=== PATIENT | female | born 1985 | race Caucasian/White ===

== ENCOUNTER 2019-01-23 08:58 | Emergency (ER) | payer SELFPAY ==
--- NOTE | 2019-01-23 09:05 | ED Physician Documentation ---
Rectal Pain - HISTORIAN Historian: patient - HPI Stated Complaint: rectal pain Chief Complaint: Rectal Pain Additional Information: Patient presents to ED with a 2 day history of rectal pain with radiation to left lower abdomen. Patient states the pain is worse with passing gas and bowel movements. She rates her pain 10/10 sharp, stabbing. She reports some pink/bright red on toilet paper after bowel movement. Patient reports history of colitis about 5 years ago. Onset: days ago (2) Timing: gradual onset Severity: moderate - Associated Symptoms Description of Stools: denies: constipation, diarrhea Abdominal Pain: LLQ Description of Rectal Bleed: bright red blood on paper Other Related Symptoms: denies: nausea, vomiting - ROS CONST: denies: no problems SKIN/LYMPH: denies: leg swelling CVS/RESP: denies: none GI/: rectal intercourse EYES/ENT: problems with vision MS: none NEURO/PSYCH: denies: headache - PAST HX Past History: other (colitis). denies: bleeding disorder Other History: other Surgeries/Procedures: none Allergies/Adverse Reactions: Allergies Allergy/AdvReac Type Severity Reaction Status Date / Time No Known Allergies Allergy Verified 01/23/19 09:11 Home Medications: Ambulatory Orders Medication Instructions Recorded Hydrocortisone 2.5% Rectal 28.35 gm RC QID #1 tube 01/23/19 [Proctosol-Hc 2.5% Rectal Cream] PARoxetine HCL [Paxil] 10 mg PO QD 01/23/19 Trazodone HCl 50 mg PO DAILY 01/23/19 - SOCIAL HX Smoking History: non-smoker Alcohol Use: none Drug Use: none - FAMILY HX Family History: none - VITAL SIGNS Vital Signs: Vital Signs Temp Pulse Resp BP Pulse Ox 96.3 F L 105 H 19 134/67 97 01/23/19 09:05 01/23/19 09:05 01/23/19 09:05 01/23/19 09:05 01/23/19 09:05 - REVIEWED ASSESSMENTS Nursing Assessment Reviewed: Yes Vitals Reviewed: Yes ED Results Lab/Radiology - Lab Results Lab Results: Lab Results 01/23/19 09:30 WBC 6.30 K/ul K/ul (4.00-12.00) RBC 4.34 M/ul M/ul (3.90-5.20) Hgb 12.7 g/dL g/dL (12.0-16.0) Hct 38.5 % % (34.5-46.5) MCV 89.0 fl fl (80.0-100.0) MCH 29.4 pg pg (28.0-34.0) MCHC 33.2 g/dL g/dL (30.0-36.0) RDW 15.8 % H % (11.3-14.3) Plt Count 229 K/mm3 K/mm3 (130-400) Neut % (Auto) 51.5 % % (39.0-79.0) Lymph % (Auto) 41.8 % % (16.0-50.0) [place] % (Auto) 4.4 % % (0.0-11.0) Eos % (Auto) 1.6 % % (0.0-6.8) Baso % (Auto) 0.7 % % (0.0-1.5) Neut # (Auto) 3.2 # k/uL # k/uL (1.4-7.7) Lymph # (Auto) 2.6 # k/uL # k/uL (0.6-4.0) [place] # (Auto) 0.3 # k/uL # k/uL (0.0-0.9) Eos # (Auto) 0.1 # k/uL # k/uL (0.0-0.6) Baso # (Auto) 0.0 # k/uL # k/uL (0.0-0.5) - Orders Orders: ED Orders Category Date Time Status CBC/PLATELET/DIFF Routine Lab 01/23/19 09:30 Completed CMP [CMP] Routine Lab 01/23/19 09:30 Received Rectal Pain Physical Exam - EXAM General Appearance: no acute distress, mild distress EENT: ASTRID Neck: nml inspection Respiratory: no resp distress CVS: reg. rate & rhythm Abdomen: soft, tenderness (LLQ palp causes rectal pain) Rectal: other (heme negative, extremely tenderness) Skin: color nml, no rash Extremities: non-tender, no edema Neuro/Psych: oriented x3, motor nml Discharge Clincal Impression: Hemorrhoids Qualifiers: Hemorrhoid type: unspecified Qualified Code(s): K64.9 - Unspecified hemorrhoids Prescriptions: Hydrocortisone 2.5% Rectal [Proctosol-Hc 2.5% Rectal Cream] 28.35 gm RC QID #1 tube Referrals: Primary Doctor,No [Primary Care Provider] - 2 Days Additional Instructions: 1. Apply Protosol as directed 2. Tylenol and/or ibuprofen as needed for pain. These may be taken together for better pain control 3. Follow up with PCP within 1 week 4. Return to ER for new or worsening symptoms. Condition: Stable Disposition: 01 HOME, SELF-CARE Decision to Admit: NO Date of Decison to Admit: 01/23/19 Decision Time: 10:13
[2019-01-23 09:11] VITALS: BP 134/67
[2019-01-23 09:59] LABS: MEAN CORPUSCULAR HEMOGLOBIN 29.4 pg (28.0-34.0)
[2019-01-23 10:00] LABS: MONOCYTES % 4.4 % (0.0-11.0)
[2019-01-23 10:01] LABS: BASOPHILS % 0.7 % (0.0-1.5); EOSINOPHILS % 1.6 % (0.0-6.8); NEUTROPHILS # 3.2 # k/uL (1.4-7.7)
[2019-01-23 10:15] LABS: eGFR (Non-African) > 60
== END 2019-01-23 10:20 | disposition home or self-care (01) ==
LOC: ED 08:58
DX: K64.9 Unspecified hemorrhoids (principal)
CPT/HCPCS: 36415; 80053; 85025; 99283

== ENCOUNTER 2019-01-24 21:14 | Emergency (ER) | payer SELFPAY ==
[2019-01-24 21:29] VITALS: BP 118/64
--- NOTE | 2019-01-24 21:35 | ED Physician Documentation ---
Rectal Pain - HISTORIAN Historian: patient - HPI Stated Complaint: rectal pain Chief Complaint: Rectal Pain (Hemorrhoid) Additional Information: Patient is a 33-year-old female who presents to the ER from the [facility] with c/o rectal pain. She was seen yesterday morning and diagnosed with a very small hemorrhoid and given a script for Proctosol but she has not picked it up. She states that she has been using preparation H. Behavior is inappropriate- she was calm lying in bed until I entered the room and she started moving all over the bed. Rectal exam was positive for a very very tiny hemorrhoid- Rectal vault was negative- no stool in vault- no polyp or abnormalities noted. Patient is starting to demonstrate signs of "drug seeking behavior". Tried to explain that condition did not warrant a narcotic pain medication- explained that it can worsen her condition. Patient unhappy with treatment. Tried to encourage her to continue using Preparation H and starting on a stool softener. Onset: days ago (seen in ER yesterday) Timing: still present Severity: mild (very small) - Associated Symptoms Last Bowel Movement: 01/24/19 Description of Stools: denies: dark stools, constipation Abdominal Pain: none Emesis Description: denies: blood, coffee grounds Description of Rectal Bleed: rectal pain (no bleed) Other Related Symptoms: denies: nausea, vomiting - ROS CONST: no problems SKIN/LYMPH: denies: leg swelling, rash CVS/RESP: none GI/: denies: rectal intercourse EYES/ENT: denies: problems with vision, sore throat MS: none NEURO/PSYCH: denies: headache, lost feeling - PAST HX Past History: hemorrhoids. denies: bleeding disorder, polyps Other History: other (depression/anxiety) Surgeries/Procedures: cholecystectomy, (x2) Immunizations: UTD Allergies/Adverse Reactions: Allergies Allergy/AdvReac Type Severity Reaction Status Date / Time No Known Allergies Allergy Verified 01/23/19 09:11 Home Medications: Ambulatory Orders Medication Instructions Recorded Hydrocortisone 2.5% Rectal 28.35 gm RC QID #1 tube 01/23/19 [Proctosol-Hc 2.5% Rectal Cream] PARoxetine HCL [Paxil] 10 mg PO QD 01/23/19 Trazodone HCl 50 mg PO DAILY 01/23/19 - SOCIAL HX Smoking History: greater than 1 pack/day Alcohol Use: none Drug Use: none - FAMILY HX Family History: none - VITAL SIGNS Vital Signs: Vital Signs Temp Pulse Resp BP Pulse Ox 98.7 F 89 19 118/64 99 01/24/19 21:22 01/24/19 21:22 01/24/19 21:22 01/24/19 21:22 01/24/19 21:22 Rectal Pain Physical Exam - EXAM General Appearance: alert, mild distress (behavior is inappropriate (calm until staff walk in room)) EENT: no signs of dehydration, ASTRID Neck: nml inspection Respiratory: breath sounds normal CVS: reg. rate & rhythm Abdomen: soft, normal bowel sounds Rectal: external hemorrhoid (very small- no abnormality noted on internal rectal exam- no stool in vault). No: thrombosed, ruptured, inflamed, bleeding Skin: color nml Extremities: non-tender, normal range of motion Neuro/Psych: oriented x3, CN's nml as tested, motor nml, sensation nml, mood/affect nml Discharge Clincal Impression: Hemorrhoids Referrals: Primary Doctor,No [Primary Care Provider] - 2 Days Additional Instructions: Continue to use Preparation H suppositories and cream Alternate Tylenol and Ibuprofen Use Cold pack as needed Follow up with PCP next week if no improvement Condition: Good Disposition: 01 HOME, SELF-CARE Decision to Admit: NO Decision Time: 21:34
== END 2019-01-24 21:40 | disposition home or self-care (01) ==
LOC: ED 21:14
DX: K64.4 Residual hemorrhoidal skin tags (principal)
CPT/HCPCS: 99281

== ENCOUNTER 2019-06-12 10:57 | Emergency (ER) | payer SELFPAY ==
[2019-06-12 11:03] VITALS: BP 124/78
--- NOTE | 2019-06-12 11:05 | ED Physician Documentation ---
General Adult - HPI Stated Complaint: reaction to something Chief Complaint: General Adult Additional Information: Patient is a 34-year-old female who presents to the ER via [facility] from the [facility]- patient states that she was at work; cleaned 2 rooms; got nauseas and vomited once; then she states her eyes got red. On arrival patient is better- she states that she may have just gotten overheated for a minute but feels better now. Onset: minutes Timing: better Severity: mild Modifying Factors: Overheated while working - ROS CONST: no problems EYES/ENT: none CVS/RESP: none GI/: none MS/SKIN/LYMPH: none - PAST HX Past History: other (depression/anxiety) Surgeries/Procedures: cholecystectomy Immunizations: UTD Allergies/Adverse Reactions: Allergies Allergy/AdvReac Type Severity Reaction Status Date / Time No Known Allergies Allergy Verified 06/12/19 11:02 Home Medications: Ambulatory Orders Medication Instructions Recorded NK 06/12/19 - SOCIAL HX Smoking History: greater than 1 pack/day Alcohol Use: rarely Drug Use: none - FAMILY HX Family History: No - VITAL SIGNS Vital Signs: Vital Signs Temp Pulse Resp BP Pulse Ox 98.0 F 77 19 124/78 100 06/12/19 10:59 06/12/19 10:59 06/12/19 10:59 06/12/19 10:59 06/12/19 10:59 - REVIEWED ASSESSMENTS Nursing Assessment Reviewed: Yes Vitals Reviewed: Yes General Adult Physical Exam - PHYSICAL EXAM GENERAL APPEARANCE: no distress EENT: eye inspection normal, ENT inspection normal, pharynx normal, no signs of dehydration, ASTRID NECK: normal inspection, supple RESPIRATORY: breath sounds normal CVS: heart sounds normal ABDOMEN: soft, normal bowel sounds, non-tender SKIN: warm/dry, normal color EXTREMITIES: non-tender, normal range of motion NEURO: oriented X3, CN's nml as tested, motor nml, sensation nml, mood/affect nml Discharge Clincal Impression: Nausea Clincal Impression: (Ruled Out): Well adult exam Referrals: Primary Doctor,No [Primary Care Provider] - 2 Days Additional Instructions: Home- rest today Increase water intake [place] diet Comments: Patient states that she feels better; does not feel that she needs anything for nausea Condition: Good Disposition: 01 HOME, SELF-CARE Decision to Admit: NO Decision Time: 11:08
== END 2019-06-12 11:05 | disposition home or self-care (01) ==
LOC: ED 10:57
DX: R11.0 Nausea (principal)
CPT/HCPCS: 99281; 99282

== ENCOUNTER 2019-06-17 18:01 | Emergency (ER) | payer SELFPAY ==
--- NOTE | 2019-06-17 18:07 | ED Physician Documentation ---
General Adult - HISTORIAN Historian: patient - HPI Stated Complaint: left hand thumb laceration Chief Complaint: Laceration/Recheck/Suture Onset: hours (1) Timing: still present Severity: mild Further Comments: yes (She states she slammed a door and a piece of glass fell out and cut her hand. She has pain but denies any loss of sensation or weakness. No other complaints.) Last known Well Code/Unknown Code: Unknown - ROS CONST: no problems CVS/RESP: none GI/: none MS/SKIN/LYMPH: none - PAST HX Past History: none Immunizations: UTD Allergies/Adverse Reactions: Allergies Allergy/AdvReac Type Severity Reaction Status Date / Time No Known Allergies Allergy Verified 06/12/19 11:02 Home Medications: Ambulatory Orders Medication Instructions Recorded NK 06/12/19 - SOCIAL HX Smoking History: cigarettes Alcohol Use: none Drug Use: none - FAMILY HX Family History: No - VITAL SIGNS Vital Signs: Vital Signs Temp Pulse Resp BP Pulse Ox 98.0 F 77 28 H 130/88 99 06/17/19 18:01 06/17/19 18:01 06/17/19 18:01 06/17/19 18:01 06/17/19 18:01 - REVIEWED ASSESSMENTS Nursing Assessment Reviewed: Yes Vitals Reviewed: Yes Procedures Anesthesia: 1% Lidocaine Suture Size/Type: 4:0 Number of Sutures: 6 Layer Closure?: No ED Results Lab/Radiology - Orders Orders: ED Orders Category Date Time Status Cleanse with NS and Chlorhexid 1T Care 06/17/19 18:14 Active Diph,Pertuss(Acell),Tet Vac/Pf [Adacel] Med 06/17/19 18:14 Discontinued 0.5 ml IM .ONCE ONE LORazepam [Ativan] Med 06/17/19 19:09 Discontinued 1 mg PO .STK-MED ONE Lidocaine 1% 20ml ([place]) [Xylocaine] Med 06/17/19 18:28 Discontinued 200 mg .ROUTE .STK-MED ONE fentaNYL CITRATE/PF [Sublimaze] Med 06/17/19 18:17 Discontinued 50 mcg IM NOW ONE General Adult Physical Exam - PHYSICAL EXAM GENERAL APPEARANCE: no distress EENT: eye inspection normal, no signs of dehydration NECK: normal inspection RESPIRATORY: no resp distress, chest non-tender CVS: reg rate & rhythm, heart sounds normal ABDOMEN: soft, normal bowel sounds, no distension SKIN: warm/dry, normal color, other (left hand base of thumb choudhary side 3 cm laceration. Cap refill normal sensation normal pulses normal FROM ) EXTREMITIES: non-tender NEURO: oriented X3 Discharge Clincal Impression: Laceration Referrals: Primary Doctor,No [Primary Care Provider] - 2 Days Comments: 1. Keep dressing on for 24 hours 2. Keep area clean 3. Follow up for suture removal in 7-10 days (6 sutures) 4. Return to ER for any increasing concerns Condition: Stable Disposition: 01 HOME, SELF-CARE Decision to Admit: NO Date of Decison to Admit: 06/17/19 Decision Time: 19:27
[2019-06-17] MEDS: fentaNYL CITRATE/PF 100 MCG/2 ML INJ. IM ONE (18:35)
[2019-06-17] MEDS: LIDOCAINE HCL 1% MDV 200MG/20ML VIAL ONE (18:50)
[2019-06-17] MEDS: LORazepam 1 MG TABLET PO ONE (19:10)
[2019-06-17] MEDS: DIPH,PERTUSS(ACELL),TET VAC/PF 0.5 ML DISP.SYRIN IM ONE (19:20)
[2019-06-17] MEDS ORDERED: DIPH,PERTUSS(ACELL),TET VAC/PF 0.5 ML DISP.SYRIN IM ONE (19:29)
[2019-06-17 20:08] VITALS: BP 128/62
== END 2019-06-17 19:35 | disposition home or self-care (01) ==
LOC: ED 18:01
DX: S61.012A Laceration without foreign body of left thumb without damage to nail, initial encounter (principal); W25.XXXA Contact with sharp glass, initial encounter
CPT/HCPCS: 90715; 96372; 99282; 99284; J3010; J7030